=== PATIENT | male | born 1980 | race Two or more races ===

== ENCOUNTER 2017-04-24 16:22 | Emergency (ER) | payer OTHER ==
[2017-04-24 16:34] VITALS: BP 139/85; PULSE 103; TEMP 98.2; BMI 32.5
[2017-04-24] MEDS ORDERED: TRIAMCINOLONE ACET 40MG/1ML VIAL IM ONE (16:51)
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
[2017-04-24] MEDS ORDERED: TRIAMCINOLONE ACET 40MG/1ML VIAL ONE (17:00)
== END 2017-04-24 17:14 | disposition home or self-care (01) ==
LOC: JERFT 16:22
DX: L50.0 Allergic urticaria (principal); T55.0X1A Toxic effect of soaps, accidental (unintentional), initial encounter; L24.5 Irritant contact dermatitis due to other chemical products; Y92.098 Other place in other non-institutional residence as the place of occurrence of the external cause
CPT/HCPCS: 99281-25

== ENCOUNTER 2019-07-24 17:22 | Emergency (ER) | payer OTHER ==
[2019-07-24 17:35] VITALS: BP 115/78; PULSE 95; BMI 36.9
--- NOTE | 2019-07-24 17:36 | PDOC ---
Rapid Medical Evaluation Chief Complaint: Chest Pain Time Seen by Provider: 07/24/19 17:32 Medical Evaluation: Allergies Allergy/AdvReac Type Severity Reaction Status Date / Time No Known Allergies Allergy Verified 04/24/17 16:29 07/24/19 17:34 This patient had rapid medical evaluation in triage cc: mid chest pain x 2 weeks HPI: Patient reports mid epigastric pain that radiates to mid back states pain is worse with inhalation and movement. PE: appears well clear lungs bilaterally heart s1s2 +mid epigastric tenderness Orders: ekg ordered This patient will proceed to ed for further evaluation. Discharge Disposition - Diagnosis Epigastric abdominal pain - Referrals - Patient Instructions - Post Discharge Activity
[2019-07-24 17:56] LABS: BASO % 0.5 % (0-2.0); EOS % 3.4 % (0-4.5); HEMATOCRIT 43.9 % (35.4-49); HEMOGLOBIN 14.6 GM/dL (11.7-16.9); LYMPH % 20.8 % (8-40); MCH 27.2 pg (25.7-33.7); MCHC 33.2 g/dl (32.0-35.9); MEAN PLT VOLUME 8.3 fl (7.5-11.1); MONO % 9.3 % (3.8-10.2); PLATELET COUNT 336 K/MM3 (134-434); RBC 5.35 M/mm3 (4.00-5.60); RDW 14.3 % (11.9-15.9); WHITE BLOOD COUNT 11.8 K/mm3 (4.0-10.0)
[2019-07-24 18:18] LABS: INR 1.03 (0.83-1.09); PROTHROMBIN TIME (PATIENT) 12.1 SEC (9.7-13.0)
[2019-07-24 18:21] LABS: ACTIVATED PTT 32.1 SECONDS (25.2-36.5)
[2019-07-24 18:24] LABS: ALBUMIN 3.7 g/dl (3.4-5.0); ALK PHOS 99 U/L (45-117); ANION GAP 5 MMOL/L (8-16); BILIRUBIN,TOTAL 0.3 mg/dL (0.2-1); BLOOD UREA NITROGEN 13.4 mg/dL (7-18); CALCIUM 8.4 mg/dL (8.5-10.1); CHLORIDE 106 mmol/L (98-107); CO2 28 mmol/L (21-32); GLUCOSE,RANDOM 93 mg/dL (74-106); POTASSIUM 3.9 mmol/L (3.5-5.1); SGOT/AST 53 U/L (15-37); SGPT/ALT 87 U/L (13-61); SODIUM 140 mmol/L (136-145); TOT PROT 7.6 g/dl (6.4-8.2)
[2019-07-24 19:27] VITALS: TEMP 98.5
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
[2019-07-24] MEDS ORDERED: KETOROLAC TROMETHAMINE 30 MG/1 ML VIAL IM ONE (21:38)
[2019-07-24] MEDS ORDERED: KETOROLAC TROMETHAMINE 30 MG/1 ML VIAL ONE (21:45)
[2019-07-24] MEDS ORDERED: diazePAM 5 MG TABLET PO ONE (22:10)
[2019-07-24] MEDS ORDERED: diazePAM 5 MG TABLET ONE (22:28)
--- NOTE | 2019-07-25 13:03 | EKG ---
Test Reason : Blood Pressure : / mmHG Vent. Rate : 071 BPM Atrial Rate : 071 BPM P-R Int : 136 ms QRS Dur : 096 ms QT Int : 374 ms P-R-T Axes : 020 008 009 degrees QTc Int : 406 ms NORMAL SINUS RHYTHM MINIMAL VOLTAGE CRITERIA FOR LVH, MAY BE NORMAL VARIANT BORDERLINE ECG NO PREVIOUS ECGS AVAILABLE Confirmed by Tank Chan MD ([id number]) on 07/25/2019 1:03:08 PM Referred By: Confirmed By:Tank Chan MD
== END 2019-07-24 22:35 | disposition home or self-care (01) ==
LOC: JER 17:22
PROC: 3E0233Z Introduction of Anti-inflammatory into Muscle, Percutaneous Approach (ICD-10-PCS; principal; 2019-07-24)
DX: R07.81 Pleurodynia (principal)
CPT/HCPCS: 36415; 71046-TC-FY; 76705-TC; 80053; 84484; 85025; 85610; 85730; 93005; 93010; 96372; 99285-25